=== PATIENT | male | born 1965 | race Two or more races ===

== ENCOUNTER 2024-05-12 20:10 | Emergency (ER) | payer SELFPAY ==
[~2024-05-12] VITALS: Ht 167.6 cm; Wt 68.2 kg
[2024-05-12] MEDS: SODIUM CHLORIDE 0.9% 2,000 ML IV ONE (20:30)
[2024-05-12 22:00] VITALS: BP 122/68; PULSE 86; RESP 18; TEMP 98.5; O2SAT 98
== END 2024-05-12 22:40 | disposition home or self-care (01) ==
LOC: EDBD 20:10 → ER 20:10
DX: S09.8XXA Other specified injuries of head, initial encounter (principal); F10.129 Alcohol abuse with intoxication, unspecified; R22.1 Localized swelling, mass and lump, neck; F17.210 Nicotine dependence, cigarettes, uncomplicated; W17.89XA Other fall from one level to another, initial encounter; Y93.89 Activity, other specified; Y92.096 Garden or yard of other non-institutional residence as the place of occurrence of the external cause; Y99.8 Other external cause status; Y90.8 Blood alcohol level of 240 mg/100 ml or more
CPT/HCPCS: 36415; 70450; 72125; 80320